=== PATIENT | female | born 1980 | race Caucasian/White ===

== ENCOUNTER 2018-05-18 07:54 | Emergency (ER) | payer OTHER ==
[~2018-05-18] VITALS: Ht 165.1 cm; Wt 68.0 kg
[~2018-05-18 07:54] MED LIST: CONZIP100 MG; PEPCID40 MG PO; PERCOCET 5/321 UDTAB; PHENERGAN25 MG PO; PNEU16DI2; PRENATAL CAPLE1 EACH; VISTARIL50 MG
== END 2018-05-18 14:06 | disposition home or self-care (01) ==
LOC: ER 07:54
DX: R42 Dizziness and giddiness (principal)